=== PATIENT | female | born 1985 | race Hispanic/Latino ===

== ENCOUNTER 2017-04-22 07:16 | Day surgery (SDC) | payer BC ==
[2017-04-22] MEDS ORDERED: Lactated Ringer's 500 ML IV ONE (07:49)
[2017-04-22] MEDS ORDERED: Propofol 10 mg/ml Inj (20 ML) ONE (08:43)
[2017-04-22 09:57] VITALS: TEMP 96.8
[2017-04-22 10:09] VITALS: BP 98/64; PULSE 77; RESP 18; O2SAT 99
== END 2017-04-22 10:30 | disposition home or self-care (01) ==
LOC: H.ENDO 07:16
PROVIDERS: ATTEND Internal Medicine Gastroenterology
DX: D50.9 Iron deficiency anemia, unspecified (principal); K64.8 Other hemorrhoids; K44.9 Diaphragmatic hernia without obstruction or gangrene; K25.9 Gastric ulcer, unspecified as acute or chronic, without hemorrhage or perforation
CPT/HCPCS: 43239; 45378; 88305; J2001; J2704; J3010; J7120

== ENCOUNTER 2017-08-01 13:15 | Emergency (ER) | payer BC, MEDICAID ==
[2017-08-01 13:22] VITALS: BP 111/67; PULSE 84; RESP 16; O2SAT 100
[2017-08-01] MEDS ORDERED: Sodium Chloride 0.9% 1,000 ML IV STA (13:30)
[2017-08-01] MEDS ORDERED: cefTRIAXone (Rocephin) 1 gm Inj IVPB ONE (13:30)
--- NOTE | 2017-08-01 13:40 | ED PDOC ---
HPI: Back Time Seen by Provider: 08/01/17 13:15 Chief Complaint (Nursing): Chest Pain Chief Complaint (Provider): Back pain History Per: Patient History/Exam Limitations: no limitations Onset/Duration Of Symptoms: Days (x2) Current Symptoms Are (Timing): Still Present Additional Complaint(s): Bakari Goins is a 31 year old female presenting to the ED for an evaluation of back pain worsening with movement occurring 2 days prior to arrival when the patient was getting out of the shower. She states the pain is now more in the left side of her belly. She also notes a temperature of 100.8, states she has recently finishes her menses, and has had an endoscopy colonoscopy performed within normal limits. She denies dysuria. PMD: TBD Past Medical History Reviewed: Historical Data, Nursing Documentation, Vital Signs Vital Signs: Last Vital Signs Temp 99.8 F H 08/01/17 13:19 Pulse 84 08/01/17 13:19 Resp 16 08/01/17 13:19 BP 111/67 08/01/17 13:19 Pulse Ox 100 08/01/17 13:19 - Medical History PMH: Anemia (THALASSEMIA MINOR) Denies: Chronic Kidney Disease - Family History Family History: States: Unknown Family Hx - Home Medications Home Medications: Ambulatory Orders Medication Instructions Recorded Omeprazole 20 mg PO DAILY 04/22/17 Ciprofloxacin HCl [Cipro] 500 mg PO Q12 #14 tablet 08/01/17 Ibuprofen [Motrin] 600 mg PO Q8 PRN #21 tab 08/01/17 Ondansetron [Zofran Odt] 4 mg PO Q8 PRN #8 odt 08/01/17 oxyCODONE/Acetaminophen [Percocet 1 ea PO Q6 PRN #8 tab 08/01/17 5/325 mg Tab] - Allergies Allergies/Adverse Reactions: Allergies Allergy/AdvReac Type Severity Reaction Status Date / Time No Known Allergies Allergy Verified 08/01/17 13:19 Review of Systems ROS Statement: Except As Marked, All Systems Reviewed And Found Negative Constitutional: Positive for: Fever Gastrointestinal: Positive for: Abdominal Pain Genitourinary Female: Negative for: Dysuria Musculoskeletal: Positive for: Back Pain Physical Exam - Reviewed Nursing Documentation Reviewed: Yes Vital Signs Reviewed: Yes - Physical Exam Appears: Positive for: Non-toxic, No Acute Distress Head Exam: Positive for: ATRAUMATIC, NORMOCEPHALIC Skin: Positive for: Normal Color, Warm, Dry Eye Exam: Positive for: Normal appearance, EOMI Neck: Positive for: Normal, Painless ROM Cardiovascular/Chest: Positive for: Regular Rate, Rhythm. Negative for: Murmur Respiratory: Positive for: Normal Breath Sounds. Negative for: Respiratory Distress Gastrointestinal/Abdominal: Positive for: Tenderness (to left upper quadrant and flank tenderness ). Negative for: Other (no suprapubic pain ) Back: Positive for: L CVA Tenderness Extremity: Positive for: Normal ROM. Negative for: Deformity Neurologic/Psych: Positive for: Alert, Oriented (x3). Negative for: Motor/ Sensory Deficits - Laboratory Results Result Diagrams: 08/01/17 13:50 08/01/17 13:50 Urine POC: Negative - ECG O2 Sat by Pulse Oximetry: 100 (RA) Pulse Ox Interpretation: Normal - Progress ED Course And Treament: ROCEPHIN 1 GM I VX 1 DOSE TORADOL 15 MG IV X 1 DOSE DILAUDID 0.5 MG IV X 1 DOSE REGLAN 10 MG IV X 1 DOSE NS 1 LITER WIDE OPEN Medical Decision Making Medical Decision Making: Time: 13:22 Impression: Back pain Plan: * VBG * CMP * Lipase * CBC (with differential) * NS 1,000 ml IV 1,000 mls/hr * Blood Culture * Urine Culture * Urinalysis * Rocephin 1 gm IVPB * Toradol 15 mg IVP * Reevaluation Scribe Attestation: Documented by Yaneth Lares, acting as a scribe for Juliet Deleon PA-C. Provider Scribe Attestation: All medical record entries made by the Scribe were at my direction and personally dictated by me. I have reviewed the chart and agree that the record accurately reflects my personal performance of the history, physical exam, medical decision making, and the department course for this patient. I have also personally directed, reviewed, and agree with the discharge instructions and disposition. Disposition - Clinical Impression Clinical Impression: Pyelonephritis - Patient ED Disposition Is Patient to be Admitted: No - Disposition Disposition: Routine/Home Disposition Time: 15:51 Condition: FAIR Prescriptions: Ciprofloxacin HCl [Cipro] 500 mg PO Q12 #14 tablet Ibuprofen [Motrin] 600 mg PO Q8 PRN #21 tab PRN Reason: Pain, Moderate (4-7) Ondansetron [Zofran Odt] 4 mg PO Q8 PRN #8 odt PRN Reason: Nausea/Vomiting oxyCODONE/Acetaminophen [Percocet 5/325 mg Tab] 1 ea PO Q6 PRN #8 tab PRN Reason: Nausea/Vomiting Instructions: Acute Pyelonephritis (DC) Forms: [facility] ([place]ian), [facility] ED School/Work Excuse
[2017-08-01 13:54] LABS: URINE BACTERIA MOD (<OCC); URINE BILIRUBIN NEGATIVE (NEGATIVE); URINE BLOOD LARGE (NEGATIVE); URINE COLOR YELLOW (YELLOW); URINE GLUCOSE (UA) NEG (Normal); URINE KETONE NEGATIVE (NEGATIVE); URINE LEUKOCYTE ESTERASE LARGE Leu/uL (Negative); URINE PROTEIN 30 mg/dL (NEGATIVE); URINE UROBILINOGEN 0.2-1.0 mg/dL (0.2-1.0); WBC URINE 183 /hpf (0-5)
[2017-08-01 13:56] LABS: RBC URINE 36 /hpf (0-3)
[2017-08-01] MEDS ORDERED: cefTRIAXone (Rocephin) 1 gm Inj ONE (14:05)
[2017-08-01 14:06] LABS: VENOUS BLOOD GAS BASE EXCESS 1.5 mmol/L (0.0-2.0); VENOUS BLOOD GAS PCO2 49 mmHg (40-60); VENOUS BLOOD PH 7.36 (7.32-7.43)
[2017-08-01 14:13] LABS: BASO % 0.3 % (0.0-2.0); EOS # 0.1 K/uL (0.0-0.7); EOS % 0.8 % (0.0-4.0); HEMATOCRIT 38.7 % (34.0-47.0); LYMPH # 1.7 K/uL (1.0-4.3); MEAN CORPUSCULAR HEMOGLOBIN 21.2 pg (27.0-31.0); MONO # 0.6 K/uL (0.0-0.8); MONO % 5.5 % (0.0-10.0); NEUT # 8.7 K/uL (1.8-7.0); NEUT % 78.4 % (50.0-75.0); RED CELL DISTRIBUTION WIDTH 15.4 % (11.5-14.5)
[2017-08-01 14:26] LABS: ALB/GLOB RATIO 1.4 (1.0-2.1); ALKALINE PHOSPHATASE 61 U/L (38-126); ALT/SGPT 31 U/L (9-52); AST/SGOT 22 U/L (14-36); BILIRUBIN,TOTAL 0.8 mg/dl (0.2-1.3); BLOOD UREA NITROGEN 6 mg/dl (7-17); CALCIUM 9.6 mg/dL (8.4-10.2); CARBON DIOXIDE 25 mmol/L (22-30); CHLORIDE 104 mmol/L (98-107); GFR AFRICAN-AMERICAN > 60; GLUCOSE,RANDOM 108 mg/dL (65-105); LIPASE 40 U/L (23-300); POTASSIUM 3.8 MMOL/L (3.6-5.0); SODIUM 141 mmol/l (132-148)
[2017-08-01 14:52] LABS: MEAN CELL VOLUME 68.4 fl (81.0-99.0)
[2017-08-01] MEDS ORDERED: HYDROmorphone 0.5 mg/0.5 ml ISec IVP STA (14:55)
[2017-08-01] MEDS ORDERED: HYDROmorphone 0.5 mg/0.5 ml ISec ONE (15:15)
[2017-08-01 16:29] VITALS: TEMP 98.7
== END 2017-08-01 16:28 | disposition home or self-care (01) ==
LOC: H.ER 13:15
DX: N12 Tubulo-interstitial nephritis, not specified as acute or chronic (principal); R10.9 Unspecified abdominal pain
CPT/HCPCS: 80053; 81003; 81025; 82803; 83690; 85025; 87040; 87086; 87181; 96365; 96375; 99282; J0696; J1170; J1885; J2765; J7040

== ENCOUNTER 2017-12-30 09:32 | Emergency (ER) | payer MEDICAID ==
[2017-12-30 09:51] VITALS: BP 124/79; PULSE 85; RESP 18; TEMP 98; O2SAT 100
[2017-12-30] MEDS ORDERED: Dexamethasone 4 mg/1 ml IM STA (10:31)
[2017-12-30] MEDS ORDERED: Naproxen 500 MG TAB PO ONE ×2 (10:31→11:08)
--- NOTE | 2017-12-30 15:40 | ED PDOC ---
HPI: General Adult Time Seen by Provider: 12/30/17 10:02 Chief Complaint (Nursing): ENT Problem History Per: Patient Additional Complaint(s): Sore throat which began yesterday and is associated with bodyaches and tactile fever. Denies cough, SOB, rash, abdominal pain. Past Medical History Reviewed: Historical Data, Nursing Documentation, Vital Signs Vital Signs: Last Vital Signs Temp 98.0 F 12/30/17 09:48 Pulse 85 12/30/17 09:48 Resp 18 12/30/17 09:48 BP 124/79 12/30/17 09:48 Pulse Ox 100 12/30/17 09:48 - Medical History PMH: Anemia (THALASSEMIA MINOR) Denies: Chronic Kidney Disease - Family History Family History: States: No Known Family Hx - Home Medications Home Medications: Ambulatory Orders Medication Instructions Recorded Omeprazole 20 mg PO DAILY 04/22/17 Ciprofloxacin HCl [Cipro] 500 mg PO Q12 #14 tablet 08/01/17 Ibuprofen [Motrin] 600 mg PO Q8 PRN #21 tab 08/01/17 Ondansetron [Zofran Odt] 4 mg PO Q8 PRN #8 odt 08/01/17 oxyCODONE/Acetaminophen [Percocet 1 ea PO Q6 PRN #8 tab 08/01/17 5/325 mg Tab] Amoxicillin [Amoxil 500 mg Cap] 500 mg PO TID #30 cap 12/30/17 Naproxen [Naprosyn] 500 mg PO BID PRN #30 tab 12/30/17 - Allergies Allergies/Adverse Reactions: Allergies Allergy/AdvReac Type Severity Reaction Status Date / Time No Known Allergies Allergy Verified 08/01/17 13:19 Review of Systems ROS Statement: Except As Marked, All Systems Reviewed And Found Negative ENT: Positive for: Ear Pain, Throat Pain Physical Exam - Physical Exam Appears: Positive for: Well, Non-toxic, No Acute Distress Skin: Positive for: Normal Color, Warm. Negative for: Rash Eye Exam: Positive for: EOMI, Normal appearance, PERRL ENT: Positive for: TM Is/Are (non-erythematous, non-bulging b/l), Pharyngeal Erythema, Tonsillar Exudate, Tonsillar Swelling (non-kissing) Neck: Positive for: Normal, Painless ROM Cardiovascular/Chest: Positive for: Regular Rate, Rhythm Respiratory: Positive for: CNT, Normal Breath Sounds Gastrointestinal/Abdominal: Positive for: Normal Exam, Soft. Negative for: Tenderness, Organomegaly Neurologic/Psych: Positive for: Alert, Oriented - ECG O2 Sat by Pulse Oximetry: 100 - Progress ED Course And Treament: Throat culture ordered. Decadron 10mg IM ordered. Disposition - Clinical Impression Clinical Impression: Tonsillitis - Patient ED Disposition Is Patient to be Admitted: No - Disposition Referrals: [facility] [Outside] [facility] [Outside] Disposition: Routine/Home Disposition Time: 10:00 Condition: STABLE Additional Instructions: Drink plenty of fluids. Do warm salt water gargles. Follow up with your PMD in 2 days for further evaluation. Prescriptions: Amoxicillin [Amoxil 500 mg Cap] 500 mg PO TID #30 cap Naproxen [Naprosyn] 500 mg PO BID PRN #30 tab PRN Reason: Pain Instructions: Tonsillitis (ED) Forms: [facility] ([place]) Print Language: ARMENIAN
== END 2017-12-30 11:18 | disposition home or self-care (01) ==
LOC: H.ER 09:32
DX: J03.90 Acute tonsillitis, unspecified (principal)
CPT/HCPCS: 81025; 96372; 99282; J1100

== ENCOUNTER 2018-06-07 22:35 | Inpatient (IN) | payer BC, MEDICAID ==
[2018-06-07] MEDS ORDERED: Morphine 4 MG/ML VIAL IVP ONE (22:51)
[2018-06-07 23:21] LABS: BASO # 0.1 K/uL (0.0-0.2); BASO % 0.6 % (0.0-2.0); EOS # 0.3 K/uL (0.0-0.7); HEMOGLOBIN 12.2 g/dL (12.0-16.0); LYMPH # 2.6 K/uL (1.0-4.3); MEAN CELL VOLUME 68.5 fl (81.0-99.0); MEAN CORPUSCULAR HEMOGLOBIN 21.9 pg (27.0-31.0); MEAN PLATELET VOLUME 9.5 fl (7.2-11.7); MONO # 0.6 K/uL (0.0-0.8); MONO % 4.4 % (0.0-10.0); NEUT # 10.8 K/uL (1.8-7.0); NRBC % 0.1 % (0.0-0.0); RBC 5.55 Mil/uL (3.80-5.20); WHITE BLOOD COUNT 14.4 K/uL (4.8-10.8)
[2018-06-07 23:23] LABS: SQUAMOUS EPITHIAL 2 /hpf (0-5); URINE BACTERIA MOD (<OCC); URINE BILIRUBIN NEGATIVE (NEGATIVE); URINE BLOOD SMALL (NEGATIVE); URINE CLARITY CLEAR (Clear); URINE COLOR YELLOW (YELLOW); URINE GLUCOSE (UA) NEG (Normal); URINE LEUKOCYTE ESTERASE NEG Leu/uL (Negative); URINE PROTEIN NEGATIVE (NEGATIVE); URINE UROBILINOGEN 0.2-1.0 mg/dL (0.2-1.0)
[2018-06-07 23:28] LABS: ALB/GLOB RATIO 1.4 (1.0-2.1); ALBUMIN 4.6 g/dL (3.5-5.0); ALT/SGPT 27 U/L (9-52); AST/SGOT 17 U/L (14-36); BLOOD UREA NITROGEN 6 mg/dl (7-17); CALCIUM 10.1 mg/dL (8.4-10.2); GFR AFRICAN-AMERICAN > 60; GFR NON-AFRICAN AMERICAN > 60; LIPASE 83 U/L (23-300)
--- NOTE | 2018-06-07 23:28 | ED PDOC ---
HPI: Abdomen Time Seen by Provider: 06/07/18 22:43 Chief Complaint (Nursing): Abdominal Pain Chief Complaint (Provider): Abdominal pain History Per: Patient History/Exam Limitations: no limitations Onset/Duration Of Symptoms: Days (1) Outside of [place] travel?: No Current Symptoms Are (Timing): Still Present Location Of Pain/Discomfort: Diffuse Quality Of Discomfort: "Pain" Associated Symptoms: Nausea. denies: Fever, Chills, Vomiting, Diarrhea, Loss Of Appetite, Back Pain, Chest Pain, Constipation, Urinary Symptoms Exacerbating Factors: Upright Position Additional History Per: Patient Additional Complaint(s): 32yo female, no past medical history, comes to ER for evaluation of abdominal pain, initially mild this morning but worsening throughout the day. Patient states she is unable to stand/sit up straight due to pain; she also reports a lot of gas. Patient reports associated nausea but denies any vomiting, fever, or diarrhea. She reports a normal bowel movement today. She offers no additional medical complaints. PMD: Dr. Singh Abnormal Vaginal Bleeding: No Last Menstral Period: 2 weeks ago Past Medical History Reviewed: Historical Data, Nursing Documentation, Vital Signs Vital Signs: Last Vital Signs Temp 98.5 F 06/09/18 03:59 Pulse 72 06/09/18 03:59 Resp 20 06/09/18 03:59 BP 102/62 06/09/18 03:59 Pulse Ox 95 06/09/18 03:59 - Medical History PMH: Anemia (THALASSEMIA MINOR) Denies: Chronic Kidney Disease - Surgical History Surgical History: No Surg Hx - Family History Family History: States: No Known Family Hx - Home Medications Home Medications: Ambulatory Orders Medication Instructions Recorded No Known Home Med 06/08/18 - Allergies Allergies/Adverse Reactions: Allergies Allergy/AdvReac Type Severity Reaction Status Date / Time No Known Allergies Allergy Verified 08/01/17 13:19 Review of Systems ROS Statement: Except As Marked, All Systems Reviewed And Found Negative Constitutional: Negative for: Fever, Chills Cardiovascular: Negative for: Chest Pain Respiratory: Negative for: Shortness of Breath Gastrointestinal: Positive for: Nausea, Abdominal Pain. Negative for: Vomiting , Diarrhea, Constipation Genitourinary Female: Negative for: Dysuria, Frequency, Hematuria Physical Exam - Reviewed Nursing Documentation Reviewed: Yes Vital Signs Reviewed: Yes - Physical Exam Appears: Positive for: Non-toxic, Uncomfortable Head Exam: Positive for: ATRAUMATIC, NORMAL INSPECTION, NORMOCEPHALIC Skin: Positive for: Normal Color Eye Exam: Positive for: Normal appearance Neck: Positive for: Supple Cardiovascular/Chest: Positive for: Regular Rate, Rhythm Respiratory: Positive for: Normal Breath Sounds Gastrointestinal/Abdominal: Positive for: Soft, Tenderness (diffuse). Negative for: Mass, Guarding, Rebound Back: Positive for: Normal Inspection Extremity: Positive for: Normal ROM. Negative for: Pedal Edema, Deformity Neurologic/Psych: Positive for: Alert, Oriented. Negative for: Motor/Sensory Deficits - Laboratory Results Result Diagrams: 06/08/18 05:30 06/07/18 23:00 - ECG O2 Sat by Pulse Oximetry: 98 (RA) Pulse Ox Interpretation: Normal Medical Decision Making Medical Decision Making: Impression: 32yo female with acute abdominal pain Plan: -- Labs -- Urinalysis -- CT Abdomen/Pelvis w/ IV Contrast -- US Pelvis/Transvaginal -- Morphine 4mg IV -- Zofran 4mg IVP 0040 US Pelvis/Transvaginal FINDINGS: Uterus/cervix: No myometrial mass. Endometrium: 0.5 cm in thickness. IUD in place. Right ovary: No mass. Normal flow. Left ovary: 1.1 x 1.0 x 0.9 cm follicle. Normal flow. Free fluid: No significant free fluid. IMPRESSION: 1. No acute findings. 2. Non-acute findings are described above. 0207 CT Abdomen/Pelvis FINDINGS: Lung bases: Unremarkable. No mass. No consolidation. ABDOMEN: Liver: Unremarkable. No mass. Gallbladder and bile ducts: Unremarkable. No calcified stones. No ductal dilation. Pancreas: Unremarkable. No mass. No ductal dilation. Spleen: Unremarkable. No splenomegaly. Adrenals: Unremarkable. No mass. Kidneys and ureters: Unremarkable. No solid mass. No hydronephrosis. Stomach and bowel: Unremarkable. No obstruction. No mucosal thickening. PELVIS: Appendix: The appendix is mildly prominent in size measuring 8 mm. No significant inflammation around the appendix. Bladder: Unremarkable. No mass. Reproductive: IUD in the uterus. ABDOMEN and PELVIS: Intraperitoneal space: Unremarkable. No free air. No significant fluid collection. Bones/joints: No acute fracture. No dislocation. Soft tissues: Small umbilical hernia containing fat. Vasculature: Unremarkable. No abdominal aortic aneurysm. Lymph nodes: Unremarkable. No enlarged lymph nodes. IMPRESSION: The appendix is mildly prominent in size measuring 8 mm. No significant inflammation around the appendix. Findings are equivocal for acute appendicitis and clinical correlation is required. 0306 Case discussed with cmo & president, Dr. Whipple, who evaluated patient in the ER. Plan for admission. Case discussed with Dr. Slaughter, who accepts patient. Scribe Attestation: Documented by Melany Singh, acting as a scribe for Julio Parekh. Provider Scribe Attestation: All medical record entries made by the Scribe were at my direction and personally dictated by me. I have reviewed the chart and agree that the record accurately reflects my personal performance of the history, physical exam, medical decision making, and the department course for this patient. I have also personally directed, reviewed, and agree with the discharge instructions and disposition. Disposition - Clinical Impression Clinical Impression: Abdominal pain - Patient ED Disposition Is Patient to be Admitted: Yes Counseled Patient/Family Regarding: Studies Performed, Diagnosis - Disposition Disposition Time: 03:00 Condition: FAIR - Pt Status Changed To: Hospital Disposition Of: Inpatient - Admit Certification Admit to Inpatient:: After my assessment, the patient will require hospitalization for at least two midnights. This is because of the severity of symptoms shown, intensity of services needed, and/or the medical risk in this patient being treated as an outpatient.
[2018-06-08] MEDS ORDERED: Iodixanol 320 MG/ML 100 ML BOTTLE IV ONE (00:48)
[2018-06-08] MEDS ORDERED: Sodium Chloride 0.9% 50 ML IV ONE (00:48)
[2018-06-08] MEDS ORDERED: Piperacillin/Tazobact 3.375 GM in Sodium Chloride 0.9% 100 ML IV STA (03:07)
[2018-06-08] MEDS ORDERED: Morphine 4 MG/ML VIAL IVP PRN (03:10)
--- NOTE | 2018-06-08 03:17 | CP.PCM.HP ---
History of Present Illness - History of Present Illness History of Present Illness: Miqbel. Igor GUILLERMO Chief Complaint: Abdominal Pain The Patient was seen and examined in the ED HPI: The hx was obtained from the patient and after review of the medical records. She is a 32 years old female with no significant past medical Hx who comes with one day of pain starting at the natalie-umbilical region and now is located across the pelvic region. This intensity increased with coughing or extending the Knees and hips.No nausea, vomits, Headache, fever, diarrhea , dysuria nor fever. PMH: Thalassemia minor PSH: No Surgical Hx SH: No illegal drug use, No Alcohol, smokes Cigarette Heavily FH: No Surg Hx Allergies: NKDA Medication: Denies Present on Admission - Present on Admission Any Indicators Present on Admission: No History of DVT/PE: No History of Uncontrolled Diabetes: No Urinary Catheter: No Decubitus Ulcer Present: No Review of Systems - Constitutional Constitutional: absent: Anorexia, Chills, Daytime Sleepiness, Fatigue, Headache - EENT Eyes: Requires Corrective Lenses. absent: Blurred Vision, Diplopia, Floaters, Loss of Peripheral Vision Ears: absent: Decreased Hearing, Ear Pain Nose/Mouth/Throat: absent: Epistaxis, Nasal Congestion, Sinus Pain, Sinus Pressure - Cardiovascular Cardiovascular: absent: Acrocyanosis, Chest Pain, Leg Edema, Orthopnea - Respiratory Respiratory: Cough. absent: Dyspnea, Chest Congestion - Gastrointestinal Gastrointestinal: absent: Bloating, Constipation, Diarrhea - Genitourinary Genitourinary: absent: Dysuria, Flank Pain, Urinary Frequency, Freq UTI - Musculoskeletal Musculoskeletal: absent: Arthralgias, Back Pain, Myalgias, Other - Integumentary Integumentary: absent: Skin Ulcer, Sores, Striae, Swelling - Neurological Neurological: absent: Confusion, Dizziness, Focal Weakness, Headaches, Paresthesias, Syncope, Weakness - Psychiatric Psychiatric: absent: Anxiety, Depression, Panic Attacks - Endocrine Endocrine: absent: Palpitations, Polydipsia, Polyphagia, Polyuria - Hematologic/Lymphatic Hematologic: absent: Easy Bleeding, Easy Bruising Past Patient History - Past Medical History & Family History Past Medical History?: No - Past Social History Smoking Status: Heavy Smoker > 10 Cigarettes Daily Alcohol: None Drugs: Denies - CARDIAC Hx Cardiac Disorders: No - PULMONARY Hx Respiratory Disorders: No - NEUROLOGICAL Hx Neurological Disorder: No - HEENT Hx HEENT Problems: No - RENAL Hx Chronic Kidney Disease: No - ENDOCRINE/METABOLIC Hx Endocrine Disorders: No - HEMATOLOGICAL/ONCOLOGICAL Hx Anemia: Yes (THALASSEMIA MINOR) - INTEGUMENTARY Hx Dermatological Problems: No - MUSCULOSKELETAL/RHEUMATOLOGICAL Hx Musculoskeletal Disorders: No - GASTROINTESTINAL Hx Gastrointestinal Disorders: No - GENITOURINARY/GYNECOLOGICAL Hx Genitourinary Disorders: No - PSYCHIATRIC Hx Psychophysiologic Disorder: No Hx Emotional Abuse: No Hx Physical Abuse: No Hx Substance Use: No - SURGICAL HISTORY Hx Surgeries: Yes Other/Comment: ECTOPIC PREGNACY SURGERY - ANESTHESIA Hx Anesthesia: Yes Hx Anesthesia Reactions: No Hx Malignant Hyperthermia: No Meds Allergies/Adverse Reactions: Allergies Allergy/AdvReac Type Severity Reaction Status Date / Time No Known Allergies Allergy Verified 08/01/17 13:19 Physical Exam - Constitutional Appears: No Acute Distress - Head Exam Head Exam: ATRAUMATIC, NORMAL INSPECTION - Eye Exam Eye Exam: EOMI, Normal appearance Pupil Exam: NORMAL ACCOMODATION, PERRL - ENT Exam ENT Exam: Mucous Membranes Moist, Normal Exam, Normal External Ear Exam - Neck Exam Neck exam: Positive for: Full Rom, Normal Inspection. Negative for: Lymphadenopathy, Tenderness - Respiratory Exam Respiratory Exam: Clear to Auscultation Bilateral. absent: Rales, Rhonchi, Wheezes - Cardiovascular Exam Cardiovascular Exam: REGULAR RHYTHM, RRR, +S1, +S2. absent: Gallop, JVD - GI/Abdominal Exam Additional comments: Flat, soft Tender at RLQ and across the pelvic and umbilical region, No guarding but Mild rebound tenderness - Rectal Exam Rectal Exam: Deferred - Extremities Exam Extremities exam: Positive for: full ROM, normal inspection. Negative for: calf tenderness, pedal edema - Back Exam Back exam: NORMAL INSPECTION. absent: CVA tenderness (L), CVA tenderness (R) - Neurological Exam Neurological exam: Alert, CN II-XII Intact, Oriented x3, Reflexes Normal - Psychiatric Exam Psychiatric exam: Normal Affect, Normal Mood - Skin Skin Exam: Dry, Normal Color, Warm Results - Vital Signs Recent Vital Signs: Last Vital Signs Temp 98.2 F 06/07/18 22:38 Pulse 73 06/07/18 22:38 Resp 16 06/07/18 22:38 BP 116/78 06/07/18 22:38 Pulse Ox 98 06/08/18 03:08 - Labs Result Diagrams: 06/07/18 23:00 06/07/18 23:00 Labs: Laboratory Results - last 24 hr 06/07/18 06/07/18 06/07/18 23:00 23:00 23:00 WBC 14.4 H RBC 5.55 H Hgb 12.2 Hct 38.0 MCV 68.5 L MCH 21.9 L MCHC 32.0 L RDW 15.0 H Plt Count 213 MPV 9.5 Neut % (Auto) 75.0 Lymph % (Auto) 18.0 L Giles % (Auto) 4.4 Eos % (Auto) 2.0 Baso % (Auto) 0.6 Neut # (Auto) 10.8 H Lymph # (Auto) 2.6 Giles # (Auto) 0.6 Eos # (Auto) 0.3 Baso # (Auto) 0.1 Sodium 142 Potassium 3.8 Chloride 104 Carbon Dioxide 24 Anion Gap 18 BUN 6 L Creatinine 0.7 Est GFR ( Amer) > 60 Est GFR (Non-Af Amer) > 60 Random Glucose 110 H Calcium 10.1 Total Bilirubin 0.4 AST 17 ALT 27 Alkaline Phosphatase 59 Total Protein 7.9 Albumin 4.6 Globulin 3.3 Albumin/Globulin Ratio 1.4 Lipase 83 Urine Color Yellow Urine Clarity Clear Urine pH 8.0 Ur Specific [place] 1.009 Urine Protein Negative Urine Glucose (UA) Neg Urine Ketones Negative Urine Blood Small Urine Nitrate Negative Urine Bilirubin Negative Urine Urobilinogen 0.2-1.0 Ur Leukocyte Esterase Neg Urine RBC (Auto) 3 Urine Microscopic WBC 1 Ur Squamous Epith Cells 2 Urine Bacteria Mod H - Imaging and Cardiology CT scan - abdomen Status: Report reviewed by me Additional comment: EXAM: CT Abdomen and Pelvis With Intravenous Contrast FINDINGS: Lung bases: Unremarkable. No mass. No consolidation. ABDOMEN: Liver: Unremarkable. No mass. Gallbladder and bile ducts: Unremarkable. No calcified stones. No ductal dilation. Pancreas: Unremarkable. No mass. No ductal dilation. Spleen: Unremarkable. No splenomegaly. Adrenals: Unremarkable. No mass. Kidneys and ureters: Unremarkable. No solid mass. No hydronephrosis. Stomach and bowel: Unremarkable. No obstruction. No mucosal thickening. PELVIS: Appendix: The appendix is mildly prominent in size measuring 8 mm. No significant inflammation around the appendix. Bladder: Unremarkable. No mass. Reproductive: IUD in the uterus. ABDOMEN and PELVIS: Intraperitoneal space: Unremarkable. No free air. No significant fluid collection. Bones/joints: No acute fracture. No dislocation. Soft tissues: Small umbilical hernia containing fat. Vasculature: Unremarkable. No abdominal aortic aneurysm. Lymph nodes: Unremarkable. No enlarged lymph nodes. IMPRESSION: The appendix is mildly prominent in size measuring 8 mm. No significant inflammation around the appendix. Findings are equivocal for acute appendicitis and clinical correlation is required. US - Pelvis Complete Status: Report reviewed by me Additional comment: EXAM: US Pelvis Complete, Transabdominal US Pelvis, Transvaginal US Duplex Arterial/Venous of the Pelvis, Complete FINDINGS: Uterus/cervix: No myometrial mass. Endometrium: 0.5 cm in thickness. IUD in place. Right ovary: No mass. Normal flow. Left ovary: 1.1 x 1.0 x 0.9 cm follicle. Normal flow. Free fluid: No significant free fluid. IMPRESSION: 1. No acute findings. 2. Non-acute findings are described above. Assessment & Plan - Assessment and Plan (Free Text) Assessment: #. Abdominal Pain #. Leukocytosis Plan: 32 years old female with no significant past medical Hx who comes with one day of pain starting at the natalie-umbilical region and now is located across the pelvic region. This intensity increased with coughing or extending the Knees and hips.No nausea, vomits, Headache, fever, diarrhea , dysuria nor fever. #. Abdominal Pain r/o Appendicitis CT Abdomen/Pelvis IMPRESSION: The appendix is mildly prominent in size measuring 8 mm. No significant inflammation around the appendix. Findings are equivocal for acute appendicitis and clinical correlation is required. - Consult Dr Zavala Surgery - NPO - Pain Management - IV Fluids #. Leukocytosis - Follow WBC #. DVT Prophylaxis with SCD #, Code Status: Full - Date & Time Date: 06/08/18 Time: 03:17
--- NOTE | 2018-06-08 03:20 | CP.PCM.CON ---
<Luann Whipple - Last Filed: 06/08/18 03:46> History of Present Illness - History of Present Illness History of Present Illness: General Surgery Dr. Zavala 32 y/o F w/ PMHx of thalasemia minor presents to the ED c/o abd pain. Pt reports pain started Friday night around bedtime. Pain described as achy natalie- umbilibical pain. Pain has since worsened to include lower abd. Pt reports similar pain in the past associated w/ constipation, but never this severe. Pt reports pain only slightly improved w/ BM Friday morning. Pain worse w/ movement. Pain improved in position. Pt admits to nausea 2/2 lightheadedness by denies fever, chills, vomiting, diarrhea, constipation. Pt reports SOB 2/2 pain. LMP: 05/30/18 PMHx: see above Meds: reviewed in chart NKDA PSHx: IUD 2017, D&C x2 SHx: 1ppd x15yrs. denies EtOH, drug use FHx: non-contibutory Review of Systems - Review of Systems All systems: reviewed and no additional remarkable complaints except (see HPI) Past Patient History - Past Medical History & Family History Past Medical History?: Yes - Past Social History Smoking Status: Heavy Smoker > 10 Cigarettes Daily - CARDIAC Hx Cardiac Disorders: No - PULMONARY Hx Respiratory Disorders: No - NEUROLOGICAL Hx Neurological Disorder: No - HEENT Hx HEENT Problems: No - RENAL Hx Chronic Kidney Disease: No - ENDOCRINE/METABOLIC Hx Endocrine Disorders: No - HEMATOLOGICAL/ONCOLOGICAL Hx Anemia: Yes (THALASSEMIA MINOR) - INTEGUMENTARY Hx Dermatological Problems: No - MUSCULOSKELETAL/RHEUMATOLOGICAL Hx Musculoskeletal Disorders: No - GASTROINTESTINAL Hx Gastrointestinal Disorders: No - GENITOURINARY/GYNECOLOGICAL Hx Genitourinary Disorders: No - PSYCHIATRIC Hx Psychophysiologic Disorder: No Hx Emotional Abuse: No Hx Physical Abuse: No Hx Substance Use: No - SURGICAL HISTORY Hx Surgeries: Yes Other/Comment: ECTOPIC PREGNACY SURGERY - ANESTHESIA Hx Anesthesia: Yes Hx Anesthesia Reactions: No Hx Malignant Hyperthermia: No Meds Allergies/Adverse Reactions: Allergies Allergy/AdvReac Type Severity Reaction Status Date / Time No Known Allergies Allergy Verified 08/01/17 13:19 - Medications Medications: Current Medications Piperacillin Sod/Tazobactam (Sod 3.375 gm/ Sodium Chloride) 100 mls @ 100 mls/ hr IV STAT STA PRN Reason: Protocol Stop: 06/08/18 04:06 Lactated Ringer's (Lactated Ringer's) 1,000 mls @ 120 mls/hr IV .Q8H20M MEAGAN Piperacillin Sod/Tazobactam (Sod 3.375 gm/ Sodium Chloride) 100 mls @ 100 mls/ hr IVPB Q6 MEAGAN PRN Reason: Protocol Morphine Sulfate (Morphine) 4 mg IVP Q4 PRN PRN Reason: Pain, moderate (4-7) Physical Exam - Constitutional Appears: Non-toxic, No Acute Distress - Head Exam Head Exam: NORMAL INSPECTION - Eye Exam Eye Exam: Normal appearance - ENT Exam ENT Exam: Mucous Membranes Moist - Respiratory Exam Respiratory Exam: Clear to Auscultation Bilateral, NORMAL BREATHING PATTERN. absent: Accessory Muscle Use, Respiratory Distress - Cardiovascular Exam Cardiovascular Exam: REGULAR RHYTHM. absent: Bradycardia, Tachycardia - GI/Abdominal Exam GI & Abdominal Exam: Diminished Bowel Sounds, Distended (minimal), Rebound, Tenderness (LLQ/RLQ). absent: Firm, Guarding, Rigid - Expanded GI/Abdominal Exam Expanded Expanded GI & Abdominal Exam: Psoas Sign, Rovsing's Sign, McBurney's Point Tenderness - Extremities Exam Extremities exam: Positive for: normal inspection - Neurological Exam Neurological exam: Alert, Oriented x3 - Psychiatric Exam Psychiatric exam: Normal Affect, Normal Mood - Skin Skin Exam: Dry, Intact, Normal Color, Warm Results - Vital Signs Recent Vital Signs: Last Vital Signs Temp 98.2 F 06/07/18 22:38 Pulse 73 06/07/18 22:38 Resp 16 06/07/18 22:38 BP 116/78 06/07/18 22:38 Pulse Ox 98 06/08/18 03:08 - Labs Result Diagrams: 06/07/18 23:00 06/07/18 23:00 Labs: Laboratory Results - last 24 hr 06/07/18 06/07/18 06/07/18 23:00 23:00 23:00 WBC 14.4 H RBC 5.55 H Hgb 12.2 Hct 38.0 MCV 68.5 L MCH 21.9 L MCHC 32.0 L RDW 15.0 H Plt Count 213 MPV 9.5 Neut % (Auto) 75.0 Lymph % (Auto) 18.0 L [place] % (Auto) 4.4 Eos % (Auto) 2.0 Baso % (Auto) 0.6 Neut # (Auto) 10.8 H Lymph # (Auto) 2.6 [place] # (Auto) 0.6 Eos # (Auto) 0.3 Baso # (Auto) 0.1 Sodium 142 Potassium 3.8 Chloride 104 Carbon Dioxide 24 Anion Gap 18 BUN 6 L Creatinine 0.7 Est GFR ( Amer) > 60 Est GFR (Non-Af Amer) > 60 Random Glucose 110 H Calcium 10.1 Total Bilirubin 0.4 AST 17 ALT 27 Alkaline Phosphatase 59 Total Protein 7.9 Albumin 4.6 Globulin 3.3 Albumin/Globulin Ratio 1.4 Lipase 83 Urine Color Yellow Urine Clarity Clear Urine pH 8.0 Ur Specific [place] 1.009 Urine Protein Negative Urine Glucose (UA) Neg Urine Ketones Negative Urine Blood Small Urine Nitrate Negative Urine Bilirubin Negative Urine Urobilinogen 0.2-1.0 Ur Leukocyte Esterase Neg Urine RBC (Auto) 3 Urine Microscopic WBC 1 Ur Squamous Epith Cells 2 Urine Bacteria Mod H - Imaging and Cardiology CT scan - abdomen Status: Image reviewed by me, Report reviewed by me Vaginal US Status: Image reviewed by me, Report reviewed by me Assessment & Plan - Assessment and Plan (Free Text) Assessment: 32 y/o F w/ abd pain 2/2 acute appendicitis vs constipation 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 Lucas Whipple DO PGY3 <Link Freedman - Last Filed: 06/08/18 12:16> History of Present Illness - History of Present Illness History of Present Illness: Patient was seen and examined at the bedside. Agree with resident's note above. Meds - Medications Medications: Current Medications Acetaminophen (Tylenol 650 Mg Supp) 650 mg [place] Q4 PRN PRN Reason: Fever >100.4 F Lactated Ringer's (Lactated Ringer's) 1,000 mls @ 120 mls/hr IV .Q8H20M MEAGAN Last Admin: 06/08/18 11:38 Dose: Not Given Piperacillin Sod/Tazobactam (Sod 3.375 gm/ Sodium Chloride) 100 mls @ 100 mls/ hr IVPB Q6 MEAGAN PRN Reason: Protocol Last Admin: 06/08/18 11:01 Dose: 100 mls/hr Morphine Sulfate (Morphine) 4 mg IVP Q4 PRN PRN Reason: Pain, moderate (4-7) Last Admin: 06/08/18 09:39 Dose: 4 mg Ondansetron HCl (Zofran Inj) 4 mg IVP Q4 PRN PRN Reason: Nausea/Vomiting Physical Exam - GI/Abdominal Exam Additional comments: soft, tender in the RLQ, ND, BS+, RLQ rebound, no guarding, + Rovsing sign Results - Vital Signs Recent Vital Signs: Last Vital Signs Temp 97.7 F 06/08/18 08:56 Pulse 80 06/08/18 08:56 Resp 19 06/08/18 08:56 BP 99/62 L 06/08/18 08:56 Pulse Ox 97 06/08/18 08:56 - Labs Result Diagrams: 06/08/18 05:30 06/07/18 23:00 Labs: Laboratory Results - last 24 hr 06/07/18 06/07/18 06/07/18 23:00 23:00 23:00 WBC 14.4 H RBC 5.55 H Hgb 12.2 Hct 38.0 MCV 68.5 L MCH 21.9 L MCHC 32.0 L RDW 15.0 H Plt Count 213 MPV 9.5 Neut % (Auto) 75.0 Lymph % (Auto) 18.0 L [place] % (Auto) 4.4 Eos % (Auto) 2.0 Baso % (Auto) 0.6 Neut # (Auto) 10.8 H Lymph # (Auto) 2.6 [place] # (Auto) 0.6 Eos # (Auto) 0.3 Baso # (Auto) 0.1 Sodium 142 Potassium 3.8 Chloride 104 Carbon Dioxide 24 Anion Gap 18 BUN 6 L Creatinine 0.7 Est GFR ( Amer) > 60 Est GFR (Non-Af Amer) > 60 Random Glucose 110 H Calcium 10.1 Total Bilirubin 0.4 AST 17 ALT 27 Alkaline Phosphatase 59 Total Protein 7.9 Albumin 4.6 Globulin 3.3 Albumin/Globulin Ratio 1.4 Lipase 83 Urine Color Yellow Urine Clarity Clear Urine pH 8.0 Ur Specific [place] 1.009 Urine Protein Negative Urine Glucose (UA) Neg Urine Ketones Negative Urine Blood Small Urine Nitrate Negative Urine Bilirubin Negative Urine Urobilinogen 0.2-1.0 Ur Leukocyte Esterase Neg Urine RBC (Auto) 3 Urine Microscopic WBC 1 Ur Squamous Epith Cells 2 Urine Bacteria Mod H 06/08/18 05:30 WBC 12.8 H RBC 5.10 Hgb 11.1 L Hct 34.5 MCV 67.5 L MCH 21.8 L MCHC 32.2 L RDW 14.9 H Plt Count 162 MPV 9.5 Neut % (Auto) 69.3 Lymph % (Auto) 22.6 [place] % (Auto) 5.6 Eos % (Auto) 2.1 Baso % (Auto) 0.4 Neut # (Auto) 8.9 H Lymph # (Auto) 2.9 [place] # (Auto) 0.7 Eos # (Auto) 0.3 Baso # (Auto) 0.1 Sodium Potassium Chloride Carbon Dioxide Anion Gap BUN Creatinine Est GFR ( Amer) Est GFR (Non-Af Amer) Random Glucose Calcium Total Bilirubin AST ALT Alkaline Phosphatase Total Protein Albumin Globulin Albumin/Globulin Ratio Lipase Urine Color Urine Clarity Urine pH Ur Specific [place] Urine Protein Urine Glucose (UA) Urine Ketones Urine Blood Urine Nitrate Urine Bilirubin Urine Urobilinogen Ur Leukocyte Esterase Urine RBC (Auto) Urine Microscopic WBC Ur Squamous Epith Cells Urine Bacteria Assessment & Plan - Assessment and Plan (Free Text) Assessment: 32 y.o. female with acute appendicitis Plan: - NPO - IV fluids - Pain control - Start antibiotics - To OR for appendectomy
[2018-06-08] MEDS: Lactated Ringer's 1,000 ML IV SCH ×2 (04:09→11:38)
[2018-06-08 06:34] LABS: BASO # 0.1 K/uL (0.0-0.2); BASO % 0.4 % (0.0-2.0); EOS # 0.3 K/uL (0.0-0.7); EOS % 2.1 % (0.0-4.0); HEMOGLOBIN 11.1 g/dL (12.0-16.0); LYMPH # 2.9 K/uL (1.0-4.3); LYMPH % 22.6 % (20.0-40.0); MEAN CELL VOLUME 67.5 fl (81.0-99.0); MEAN CORPUSCULAR HEMOGLOBIN 21.8 pg (27.0-31.0); MEAN CORPUSCULAR HGB CONC 32.2 g/dL (33.0-37.0); MEAN PLATELET VOLUME 9.5 fl (7.2-11.7); MONO # 0.7 K/uL (0.0-0.8); MONO % 5.6 % (0.0-10.0); NEUT # 8.9 K/uL (1.8-7.0); NEUT % 69.3 % (50.0-75.0); RBC 5.1 Mil/uL (3.80-5.20); RED CELL DISTRIBUTION WIDTH 14.9 % (11.5-14.5); WHITE BLOOD COUNT 12.8 K/uL (4.8-10.8)
[2018-06-08] MEDS ORDERED: Piperacillin/Tazobact 3.375 GM in Sodium Chloride 0.9% 100 ML IVPB SCH (09:00)
--- NOTE | 2018-06-08 09:49 | US ---
Date of service: 06/07/2018 HISTORY: Pelvic pain COMPARISON: None available. TECHNIQUE: Transabdominal and transvaginal pelvic ultrasound was performed. FINDINGS: UTERUS: Measures 9.0 x 5.0 x 7.7 cm. Anteverted, in size and appearance. No fibroid or other mass lesion seen. ENDOMETRIUM: Measures 5 mm in diameter. An intrauterine device remains in satisfactory position CERVIX: No cervical abnormality identified. RIGHT OVARY: Measures 2.6 x 2.0 x 1.9 cm. No solid mass. Normal flow. LEFT OVARY: Measures 3.4 x 1.9 x 2.5 cm. No solid mass. Normal flow. FREE FLUID: No significant free fluid noted. OTHER FINDINGS: None. IMPRESSION: Intrauterine device remains in satisfactory position. Unremarkable pelvic ultrasound. A preliminary report was provided by [email or web address].
--- NOTE | 2018-06-08 10:17 | CP.PCM.PN ---
Subjective - Date & Time of Evaluation Date of Evaluation: 06/08/18 Time of Evaluation: 10:07 - Subjective Subjective: Pt seen and examined this AM. Agree with resident's consult note. Pt reports her abdominal pain has not improved. She denies having any fever, nausea or vomiting. She does report having a headache as her last PO intake was 16 hours ago. Afebrile. Labs and vitals noted. WBC remains elevated 12.8, however had slight improvement since admission (14.4). PE Gen: Pt laying in bed in NAD Skin: Warm and dry Cardio: S1S2 rrr Lungs: CTA bilaterally Abd: Soft, (+) RLQ tenderness at McBurney's, (+) Rebound, (+) Rovsing's, (-) Psoas, (-) Obturator, (-) CVA tenderness A/P Abdominal Pain/Appendicitis NPO OR today 12pm with Dr. Freedman IVF Antibiotics Pain management Objective - Vital Signs/Intake and Output Vital Signs (last 24 hours): Temp Pulse Resp BP Pulse Ox 97.7 F 80 19 99/62 L 97 06/08/18 08:56 06/08/18 08:56 06/08/18 08:56 06/08/18 08:56 06/08/18 08:56 - Medications Medications: Current Medications Lactated Ringer's (Lactated Ringer's) 1,000 mls @ 120 mls/hr IV .Q8H20M MEAGAN Last Admin: 06/08/18 04:09 Dose: 120 mls/hr Piperacillin Sod/Tazobactam (Sod 3.375 gm/ Sodium Chloride) 100 mls @ 100 mls/ hr IVPB Q6 MEAGAN PRN Reason: Protocol Morphine Sulfate (Morphine) 4 mg IVP Q4 PRN PRN Reason: Pain, moderate (4-7) Last Admin: 06/08/18 09:39 Dose: 4 mg - Labs Labs: 06/08/18 05:30 06/07/18 23:00
[2018-06-08] MEDS: Piperacillin/Tazobact 3.375 GM in Sodium Chloride 0.9% 100 ML IVPB SCH ×3 (11:01→22:07)
--- NOTE | 2018-06-08 11:39 | CT ---
Date of service: 06/08/2018 PROCEDURE: CT Abdomen and Pelvis with contrast HISTORY: Unspecified abdominal pain. COMPARISON: June 07, 2018. Pelvic ultrasound TECHNIQUE: Contrast dose: 90 cc Visipaque 320. Radiation dose: Total exam DLP = 399.22 mGy-cm. This CT exam was performed using one or more of the following dose reduction techniques: Automated exposure control, adjustment of the mA and/or kV according to patient size, and/or use of iterative reconstruction technique. FINDINGS: LOWER THORAX: Unremarkable. LIVER: Unremarkable. No gross lesion or ductal dilatation. GALLBLADDER AND BILE DUCTS: Unremarkable. PANCREAS: Unremarkable. No gross lesion or ductal dilatation. SPLEEN: Unremarkable. ADRENALS: Unremarkable. No mass. KIDNEYS AND URETERS: Unremarkable. No hydronephrosis. No solid mass. VASCULATURE: Unremarkable. No aortic aneurysm. BOWEL: Unremarkable. No obstruction. No gross mural thickening. APPENDIX: No abnormalities to suggest acute appendicitis. No right lower quadrant inflammatory processes identified. PERITONEUM: Unremarkable. No free fluid. No free air. LYMPH NODES: Unremarkable. No enlarged lymph nodes. BLADDER: Unremarkable. REPRODUCTIVE: Intrauterine contraceptive device (IUD) identified BONES: No acute fracture. OTHER FINDINGS: None. IMPRESSION: No acute findings related to/accounting for the clinical presentation. Additional benign and/or incidental findings described above. Concordant results (preliminary interpretation) provided by [facility]. Procedure Completed: 01:11. Preliminary ([facility]) Report: Dictated and Authenticated: 02:07. Final Interpretation: 11:37. June 08, 2018.
[2018-06-08] MEDS ORDERED: Propofol 10 mg/ml Inj (20 ML) ONE (11:53)
[2018-06-08] MEDS ORDERED: Rocuronium 10 mg/ml (5 ml) ONE (11:54)
[2018-06-08] MEDS ORDERED: Succinylcholine 200 mg/10 ml Inj IV ONE (11:54)
[2018-06-08] MEDS ORDERED: Midazolam 2 MG/2 ML VIAL ONE (11:54)
[2018-06-08] MEDS ORDERED: Lactated Ringer's 1,000 ML IV ONE (12:10)
[2018-06-08] MEDS ORDERED: Bupivacaine HCl 0.25% PF (30 ml) Inj ONE (12:58)
--- NOTE | 2018-06-08 13:15 | PCM.SURG1 ---
Surgeon's Initial Post Op Note - Surgeon's Notes Surgeon: Link Freedman MD Education Supervisor: Leanne Brandon, PGY-4; Kaia Ng, PGY-2 Type of Anesthesia: General Endo Anesthesia Administered By: Dr. Sanchez Pre-Operative Diagnosis: Acute appendicitis Operative Findings: See op report Post-Operative Diagnosis: Acute appendicitis Operation Performed: Laparoscopic appendectomy Specimen/Specimens Removed: Appendix Estimated Blood Loss: EBL {In ML}: 5 Blood Products Given: N/A Drains Used: No Drains Post-Op Condition: Good Date of Surgery/Procedure: 06/08/18 Time of Surgery/Procedure: 13:15
[2018-06-08] MEDS ORDERED: Lactated Ringer's 1,000 ML IV SCH (13:45)
[2018-06-08] MEDS: Oxycodone/Acetaminophen 5/325 mg Tab PO PRN ×2 (15:23→20:00)
[2018-06-08] MEDS ORDERED: Oxycodone/Acetaminophen 5/325 mg Tab PO PRN (22:24)
[2018-06-09] MEDS: Oxycodone/Acetaminophen 5/325 mg Tab PO PRN ×2 (01:54→08:22)
[2018-06-09] MEDS: Piperacillin/Tazobact 3.375 GM in Sodium Chloride 0.9% 100 ML IVPB SCH ×2 (03:58→09:05)
[2018-06-09 04:00] VITALS: RESP 20; TEMP 98.5
[2018-06-09 06:44] LABS: BASO % 0.6 % (0.0-2.0); EOS # 0.2 K/uL (0.0-0.7); EOS % 2.4 % (0.0-4.0); HEMOGLOBIN 9.5 g/dL (12.0-16.0); LYMPH # 2.9 K/uL (1.0-4.3); LYMPH % 36.9 % (20.0-40.0); MEAN CELL VOLUME 67.3 fl (81.0-99.0); MEAN CORPUSCULAR HEMOGLOBIN 21.9 pg (27.0-31.0); MEAN CORPUSCULAR HGB CONC 32.5 g/dL (33.0-37.0); MEAN PLATELET VOLUME 9.3 fl (7.2-11.7); MONO # 0.5 K/uL (0.0-0.8); MONO % 6.2 % (0.0-10.0); NEUT # 4.2 K/uL (1.8-7.0); NEUT % 53.9 % (50.0-75.0); NRBC % 0.1 % (0.0-0.0); RBC 4.35 Mil/uL (3.80-5.20); RED CELL DISTRIBUTION WIDTH 14.9 % (11.5-14.5); WHITE BLOOD COUNT 7.9 K/uL (4.8-10.8)
[2018-06-09 07:02] LABS: BLOOD UREA NITROGEN 4 mg/dl (7-17); CALCIUM 8.4 mg/dL (8.4-10.2); GFR AFRICAN-AMERICAN > 60; GFR NON-AFRICAN AMERICAN > 60
--- NOTE | 2018-06-09 07:09 | CP.PCM.PN ---
<BrandonLeanne samano - Last Filed: 06/09/18 07:14> Subjective - Date & Time of Evaluation Date of Evaluation: 06/09/18 Time of Evaluation: 07:08 - Subjective Subjective: General Surgery - Dr. Freedman Pt S&EBrandon CORLEY. Pt doing well post op. She states the pain she had before is gone and she now complains only of incisional pain, which is controlled with PO medications. She is tolerating regular diet and ambulating. No Fevers/Chills/ Nausea/Vomiting/SOB/Chest pain. Objective - Vital Signs/Intake and Output Vital Signs (last 24 hours): Temp Pulse Resp BP Pulse Ox 98.5 F 72 20 102/62 98 06/09/18 03:59 06/09/18 03:59 06/09/18 03:59 06/09/18 03:59 06/09/18 04:55 - Medications Medications: Current Medications Acetaminophen (Tylenol 325mg Tab) 650 mg PO Q4 PRN PRN Reason: Pain, moderate (4-7) Piperacillin Sod/Tazobactam (Sod 3.375 gm/ Sodium Chloride) 100 mls @ 100 mls/ hr IVPB Q6 MEAGAN PRN Reason: Protocol Last Admin: 06/09/18 03:58 Dose: 100 mls/hr Ondansetron HCl (Zofran Inj) 4 mg IVP Q4 PRN PRN Reason: Nausea/Vomiting Oxycodone/Acetaminophen (Percocet 5/325 Mg Tab) 2 tab PO Q4 PRN PRN Reason: Pain, severe (8-10) Stop: 06/11/18 22:24 Last Admin: 06/09/18 01:54 Dose: 2 tab Oxycodone/Acetaminophen (Percocet 5/325 Mg Tab) 1 tab PO Q4 PRN PRN Reason: Pain, moderate (4-7) Stop: 06/11/18 13:17 - Labs Labs: 06/09/18 05:30 06/09/18 05:30 - Constitutional Appears: Well, No Acute Distress - Head Exam Head Exam: ATRAUMATIC, NORMAL INSPECTION, NORMOCEPHALIC - Eye Exam Eye Exam: Normal appearance - ENT Exam ENT Exam: Mucous Membranes Moist - Respiratory Exam Respiratory Exam: NORMAL BREATHING PATTERN. absent: Respiratory Distress - Cardiovascular Exam Cardiovascular Exam: REGULAR RHYTHM - GI/Abdominal Exam GI & Abdominal Exam: Soft, Tenderness (appropriate post-op). absent: Distended , Firm, Guarding, Rigid, Rebound - Neurological Exam Neurological Exam: Alert, Oriented x3 - Psychiatric Exam Psychiatric exam: Normal Affect, Normal Mood - Skin Skin Exam: Dry, Intact Assessment and Plan - Assessment and Plan (Free Text) Assessment: 32 yo F s/p Laparoscopic Appendectomy, POD #1 -Doing well post-op -Tolerating Regular diet, Pain controlled with PO medications, Ambulating -Clear for DC Home -Post-op instructions explained to patient: Resume regular diet, light activity such as walking. Avoid any heavy lifting >10lbs for 4-6weeks. You may shower, no soaking/bathing/swimming. Take Percocet PRN for pain as prescribed, Motrin or Tylenol for mild pain. Make an appointment to see Dr. Freedman in office in [address] Tano Brandon PGY4 <Link Freedman - Last Filed: 06/09/18 10:11> Subjective - Date & Time of Evaluation Time of Evaluation: 09:30 - Subjective Subjective: Patient was seen and examined at the bedside. Agree with resident's note above. Objective - Vital Signs/Intake and Output Vital Signs (last 24 hours): Temp Pulse Resp BP Pulse Ox 98.5 F 106 H 20 108/72 100 06/09/18 08:34 06/09/18 08:34 06/09/18 08:34 06/09/18 08:34 06/09/18 08:34 - Medications Medications: Current Medications Acetaminophen (Tylenol 325mg Tab) 650 mg PO Q4 PRN PRN Reason: Pain, moderate (4-7) Piperacillin Sod/Tazobactam (Sod 3.375 gm/ Sodium Chloride) 100 mls @ 100 mls/ hr IVPB Q6 MEAGAN PRN Reason: Protocol Last Admin: 06/09/18 09:05 Dose: 100 mls/hr Ondansetron HCl (Zofran Inj) 4 mg IVP Q4 PRN PRN Reason: Nausea/Vomiting Oxycodone/Acetaminophen (Percocet 5/325 Mg Tab) 2 tab PO Q4 PRN PRN Reason: Pain, severe (8-10) Stop: 06/11/18 22:24 Last Admin: 06/09/18 08:22 Dose: 2 tab Oxycodone/Acetaminophen (Percocet 5/325 Mg Tab) 1 tab PO Q4 PRN PRN Reason: Pain, moderate (4-7) Stop: 06/11/18 13:17 - Labs Labs: 06/09/18 05:30 06/09/18 05:30
[2018-06-09] MEDS ORDERED: Potassium Chloride 20 mEq ER Tab PO ONE (07:28)
[2018-06-09 08:34] VITALS: BP 108/72; PULSE 106; O2SAT 100
--- NOTE | 2018-06-09 08:41 | OP ---
PROCEDURE DATE: 06/08/18 PREOPERATIVE DIAGNOSIS: Rule out appendicitis. POSTOPERATIVE DIAGNOSIS: Early acute appendicitis. PROCEDURE: Laparoscopic appendectomy. SURGEON: Link Freedman MD VETERANS' COORDINATOR: Leanne Brandon DO SECOND VETERANS' COORDINATOR: Kaia Ng DO ANESTHESIOLOGIST: Osmani Sanchez MD ANESTHESIA: General endotracheal intubation. INTRAVENOUS FLUIDS: Crystalloids. ESTIMATED BLOOD LOSS: 5 mL. INTRAOPERATIVE FINDINGS: Early acute appendicitis. SPECIMEN: Appendix. BRIEF HISTORY: Mrs. Goins is a 32-year-old female who came to the hospital complaining of abdominal pain and upon further investigation, the patient was found to have elevated white blood cell count as well as physical exam findings significant for acute appendicitis on the CAT scan; however, appendix appeared to be mildly dilated, but there was a question of acute appendicitis. All the risks and benefits of the procedure were explained to the patient and with the patient having a full understanding of all the risks and benefits involved, informed consent was obtained, and the patient was taken to the operating room for above-stated procedure. DESCRIPTION OF PROCEDURE: The patient was brought into the operating room and placed supine on the operating room table. Bilateral Flowtron boots were applied to the patient's lower extremities. After successful induction of anesthesia and successful endotracheal intubation by the anesthesia team, Arredondo catheter was inserted into the patient's urinary bladder. Subsequent to that, the patient's abdomen was prepped with ChloraPrep stick and draped in a standard surgical fashion. Prior to the beginning of the procedure, a time-out was called in the room and everyone in the room were in agreement. Using Veress needle, the patient's abdomen was entered at the umbilicus, and pneumoperitoneum was achieved with good opening pressures. Once this was accomplished, using an #11-blade scalpel knife, approximately 5-mm incision was made in a longitudinal fashion. Subsequent to that, a 5-mm trocar was introduced into the patient's abdomen. At this point in time, a 5-mm 0-degree scope was introduced into the patient's abdomen. Then, attention was turned to the lower mid abdomen. Using 11-blade scalpel knife, a 5-mm incision was made in a transverse fashion. Subsequent to that, a 5-mm trocar was introduced into the patient's abdomen. At this point in time, attention was turned to the right lower quadrant of the patient's abdomen. Using 11-blade scalpel knife, approximately 1-cm incision was made in a transverse fashion. Subsequent to that, a 12-mm trocar was introduced into the patient's abdomen. At this point in time, using two Hunter and Geelvia graspers, appendix was mobilized. Subsequent to that, using [place] dissectors, a window was created between the appendix and the mesoappendix. Once this was accomplished, the appendix was taken right at the base with blue load 45-mm Endo GOMEZ stapler. At this point in time, once the appendix was taken at the base, the mesoappendix was taken with 45-mm corcoran load Endo GOMEZ stapler. Once the appendix was completely transected off, EndoCatch bag was introduced into the patient's abdomen. Appendix was placed inside of the bag, and the bag was closed. Staple line was inspected for hemostasis. Hemostasis appeared to be satisfactory. So, at this point in time, the appendix together with EndoCatch bag and the 12-mm trocar were removed from the patient's abdomen and passed off to the [facility] as a specimen. Fascial layer of the 12-mm trocar site was closed with one interrupted 0 Vicryl suture and an UR-6 needle. Subsequent to that, the patient's abdomen was fully desufflated. The rest of the trocars were removed from the patient's abdomen. The skin was closed with a 4-0 Monocryl suture in a running subcuticular fashion. At the end of the procedure, incision sites were infiltrated with Marcaine anesthetic. The patient's abdomen was washed and dried, and Dermabond was applied to the site of the incisions. Arredondo catheter was removed from the patient's urinary bladder. The patient was successfully extubated by the anesthesia team, [facility] and taken to the recovery room in a stable condition. At the end of the procedure, all instrument counts, needles and sponges were correct. Link Freedman MD
--- NOTE | 2018-06-09 11:48 | CP.PCM.DIS ---
Provider - Provider Date of Admission: 06/08/18 03:05 Attending physician: Gregorio Slaughter Time Spent in preparation of Discharge (in minutes): 35 Diagnosis - Discharge Diagnosis (1) Appendicitis Status: Acute Hospital Course - Lab Results Lab Results: Most Recent Lab Values WBC 7.9 K/uL (4.8-10.8) 06/09/18 05:30 RBC 4.35 Mil/uL (3.80-5.20) 06/09/18 05:30 Hgb 9.5 g/dL (12.0-16.0) L 06/09/18 05:30 Hct 29.2 % (34.0-47.0) L 06/09/18 05:30 MCV 67.3 fl (81.0-99.0) L 06/09/18 05:30 MCH 21.9 pg (27.0-31.0) L 06/09/18 05:30 MCHC 32.5 g/dL (33.0-37.0) L 06/09/18 05:30 RDW 14.9 % (11.5-14.5) H 06/09/18 05:30 Plt Count 140 K/uL (130-400) 06/09/18 05:30 MPV 9.3 fl (7.2-11.7) 06/09/18 05:30 Neut % (Auto) 53.9 % (50.0-75.0) 06/09/18 05:30 Lymph % (Auto) 36.9 % (20.0-40.0) 06/09/18 05:30 [place] % (Auto) 6.2 % (0.0-10.0) 06/09/18 05:30 Eos % (Auto) 2.4 % (0.0-4.0) 06/09/18 05:30 Baso % (Auto) 0.6 % (0.0-2.0) 06/09/18 05:30 Neut # (Auto) 4.2 K/uL (1.8-7.0) 06/09/18 05:30 Lymph # (Auto) 2.9 K/uL (1.0-4.3) 06/09/18 05:30 [place] # (Auto) 0.5 K/uL (0.0-0.8) 06/09/18 05:30 Eos # (Auto) 0.2 K/uL (0.0-0.7) 06/09/18 05:30 Baso # (Auto) 0.0 K/uL (0.0-0.2) 06/09/18 05:30 Sodium 139 mmol/l (132-148) 06/09/18 05:30 Potassium 3.5 MMOL/L (3.6-5.0) L 06/09/18 05:30 Chloride 105 mmol/L (98-107) 06/09/18 05:30 Carbon Dioxide 25 mmol/L (22-30) 06/09/18 05:30 Anion Gap 13 (10-20) 06/09/18 05:30 BUN 4 mg/dl (7-17) L 06/09/18 05:30 Creatinine 0.7 mg/dl (0.7-1.2) 06/09/18 05:30 Est GFR ( Amer) > 60 06/09/18 05:30 Est GFR (Non-Af Amer) > 60 06/09/18 05:30 Random Glucose 88 mg/dL (65-105) 06/09/18 05:30 Calcium 8.4 mg/dL (8.4-10.2) 06/09/18 05:30 Total Bilirubin 0.4 mg/dl (0.2-1.3) 06/07/18 23:00 AST 17 U/L (14-36) 06/07/18 23:00 ALT 27 U/L (9-52) 06/07/18 23:00 Alkaline Phosphatase 59 U/L (38-126) 06/07/18 23:00 Total Protein 7.9 G/DL (6.3-8.2) 06/07/18 23:00 Albumin 4.6 g/dL (3.5-5.0) 06/07/18 23:00 Globulin 3.3 gm/dL (2.2-3.9) 06/07/18 23:00 Albumin/Globulin Ratio 1.4 (1.0-2.1) 06/07/18 23:00 Lipase 83 U/L (23-300) 06/07/18 23:00 Urine Color Yellow (YELLOW) 06/07/18 23:00 Urine Clarity Clear (Clear) 06/07/18 23:00 Urine pH 8.0 (5.0-8.0) 06/07/18 23:00 Ur Specific [place] 1.009 (1.003-1.030) 06/07/18 23:00 Urine Protein Negative mg/dL (NEGATIVE) 06/07/18 23:00 Urine Glucose (UA) Neg mg/dL (Normal) 06/07/18 23:00 Urine Ketones Negative mg/dL (NEGATIVE) 06/07/18 23:00 Urine Blood Small (NEGATIVE) 06/07/18 23:00 Urine Nitrate Negative (NEGATIVE) 06/07/18 23:00 Urine Bilirubin Negative (NEGATIVE) 06/07/18 23:00 Urine Urobilinogen 0.2-1.0 mg/dL (0.2-1.0) 06/07/18 23:00 Ur Leukocyte Esterase Neg [place]/uL (Negative) 06/07/18 23:00 Urine RBC (Auto) 3 /hpf (0-3) 06/07/18 23:00 Urine Microscopic WBC 1 /hpf (0-5) 06/07/18 23:00 Ur Squamous Epith Cells 2 /hpf (0-5) 06/07/18 23:00 Urine Bacteria Mod (<OCC) H 06/07/18 23:00 - Hospital Course Hospital Course: 32 yo F s/p Laparoscopic Appendectomy, POD #1 -Doing well post-op -Tolerating Regular diet, Pain controlled with PO medications, Ambulating -Clear for DC Home -Post-op instructions explained to patient: Resume regular diet, light activity such as walking. Avoid any heavy lifting >10lbs for 4-6weeks. You may shower, no soaking/bathing/swimming. Take Percocet PRN for pain as prescribed, Motrin or Tylenol for mild pain. Make an appointment to see Dr. Freedman in office in 1 week. Discharge Exam - Head Exam Head Exam: ATRAUMATIC, NORMAL INSPECTION, NORMOCEPHALIC - Respiratory Exam Respiratory Exam: Clear to PA & Lateral, NORMAL BREATHING PATTERN - Cardiovascular Exam Cardiovascular Exam: REGULAR RHYTHM, +S1, +S2 - GI/Abdominal Exam GI & Abdominal Exam: Normal Bowel Sounds, Soft, Tenderness Additional comments: tenderness expected at surgical site - Neurological Exam Neurological exam: Alert, Oriented x3 Discharge Plan - Discharge Medications Prescriptions: Amoxicillin/Clavulanate [Augmentin 875 MG-125 MG] 1 tab PO Q12 3 Days #6 tab oxyCODONE/Acetaminophen [Percocet 5/325 mg Tab] 1 tab PO Q6 PRN #15 tab PRN Reason: Pain, Moderate (4-7) - Follow Up Plan Condition: FAIR Disposition: HOME/ ROUTINE Instructions: Amoxicillin and Clavulanate, Appendectomy, Laparoscopic Surgery ( DC) Additional Instructions: Please follow up with Dr. Freedman in the office in 10-14 days No heavy lifting for 4-6 weeks- nothing heavier than a gallon of milk in each hand Ok to shower on Saturday June 09, 2018 Do not sit in a hot tub, go swimming or take a bath You have special glue over the incisions, it will fall off on it's own- do not remove it Ok to resume normal diet If you take the pain medication, watch out for constipation, please only take the pain medication if you really need it. If you take it for a few days, then make sure to eat foods with fiber in it and drink water (oatmeal, fruits/ vegetables) Referrals: Link Freedman MD [Staff Provider] - Adolfo Singh MD [Family Provider] -
== END 2018-06-09 12:41 | disposition home or self-care (01) | DRG 883 ==
LOC: H.ER 22:35 → H.ERHOLD 06-08 03:05 → H.MEDSURG1 06-08 04:10
PROVIDERS: ADMIT Internal Medicine; ATTEND Internal Medicine
PROC: 0DTJ4ZZ Resection of Appendix, Percutaneous Endoscopic Approach (ICD-10-PCS; principal; 2018-06-08 12:00)
DX: K35.80 Unspecified acute appendicitis (principal); D56.3 Thalassemia minor; F17.210 Nicotine dependence, cigarettes, uncomplicated; D72.829 Elevated white blood cell count, unspecified